=== PATIENT | female | born 1960 | race Caucasian/White ===

== ENCOUNTER → 2016-10-12 | Outpatient (CLI) | payer BC, OTHER | LOC: RAD 11:40 | DX: S52.502A Unspecified fracture of the lower end of left radius, initial encounter for closed fracture (principal); X58.XXXA Exposure to other specified factors, initial encounter; Y93.9 Activity, unspecified; Y92.89 Other specified places as the place of occurrence of the external cause; Y99.8 Other external cause status; M25.532 Pain in left wrist ==

== ENCOUNTER → 2018-03-28 | Outpatient (CLI) | payer BC, OTHER | LOC: ULTRA 09:20 | DX: E04.2 Nontoxic multinodular goiter (principal) ==

== ENCOUNTER → 2019-05-28 | Outpatient (CLI) | payer BC, OTHER | LOC: RAD 15:29 | DX: M47.812 Spondylosis without myelopathy or radiculopathy, cervical region (principal); M53.82 Other specified dorsopathies, cervical region ==